=== PATIENT | male | born 1950 | race Caucasian/White ===

== ENCOUNTER 2016-08-13 06:25 | Observation (INO) | payer BC ==
[2016-08-13] MEDS ORDERED: ONDANSETRON HCL/PF 2 MG/ML VIAL IV ONE (06:42)
[2016-08-13] MEDS ORDERED: NORMAL SALINE 1,000 ML IV ONE ×2 (06:42→08:12)
[2016-08-13] MEDS ORDERED: ONDANSETRON HCL/PF 2 MG/ML VIAL ONE ×2 (06:44→07:04)
[2016-08-13] MEDS ORDERED: ONDANSETRON 4 MG TAB.RAPDIS PO ONE (06:56)
[2016-08-13] MEDS ORDERED: ONDANSETRON 4 MG TAB.RAPDIS ONE (07:07)
[2016-08-13] MEDS ORDERED: DIATRIZOATE MEGLU/DIATRIZO SOD 30 ML BTL ONE (07:07)
[2016-08-13] MEDS ORDERED: DIATRIZOATE MEGLU/DIATRIZO SOD 30 ML BTL PO ONE (07:09)
[2016-08-13 07:15] LABS: Hematocrit 46.5 % (42.0-52.0); Hemoglobin 16.3 gm/dL (13.5-18.0); Mean Cell Volume 85.5 fl (78-100); Mean Corpuscular Hgb Conc 35.1 g/dl (32-36); Mean Platelet Volume 10.9 fl (6.0-9.5); Platelet Count 116 K/mm3 (150-450); Red Blood Count 5.44 M/mm3 (4.7-6.0); Red Cell Distribution Width 12.6 % (11.5-14.0); White Blood Count 3.5 K/mm3 (4.0-10.5)
[2016-08-13 07:16] LABS: Total Cells Counted 100
[2016-08-13] MEDS ORDERED: KETOROLAC TROMETHAMINE 30 MG/ML VIAL IV ONE (07:16)
[2016-08-13 07:25] LABS: Atypical (Reactive) Lymph 9 % (0-2); Band 6 % (0-2.0); Basophil 1 % (0-1); Eosinophil 1 % (0-3); Immature Granulocyte 1 (0-1); Lymphocyte 17 % (20-51); Monocyte 4 % (0-9); Neutrophil 61 % (42-75); Neutrophil # 2.1 K/mm3 (1.3-6.0); Platelet Estimate Normal (NORMAL); RBC Morphology Normal (NORMAL)
--- NOTE | 2016-08-13 07:25 | ERNOTE ---
<Jesus Oro - Last Filed: 08/13/16 07:25> Medical Problem HPI - Narrative Date of Service: 08/13/16 - General Chief Complaint: Nausea/Vomiting Time Seen by Provider: 08/13/16 07:18 Source: patient, family Exam Limitations: no limitations - Immun/Allergies/Home Medications Immunizations: IMMUNIZATION HX Immunizations Up to Date Yes History of Influenza Vaccine No Hx Pneumococcal Vaccination No Allergies/Adverse Reactions: Allergies morphine Adverse Reaction (Mild, Verified 08/13/16 07:02) Other Home Medications: HOME MEDICATIONS Aspirin [Aspirin Chewable] 81 mg PO DAILY 07/07/14 [Last Taken Unknown] Atorvastatin Calcium [Lipitor] 20 mg PO DAILY 07/07/14 [Last Taken Unknown] Metoprolol Tartrate [Lopressor] 25 mg PO DAILY 07/07/14 [Last Taken Unknown] Sitagliptin Phosphate [Januvia] 100 mg PO DAILY 07/07/14 [Last Taken Unknown] - History of Present History Narrative: 66 year old that returned from [place] about 9 days ago after a cruise. Seven days ago he began having diarrhea that has been persistent. Since he did not look at it, he does not know if there was blood in it. Eating increases the diarrhea. Juan Ramon believes that he has lost 20 pounds since the onset of his symptoms. There has been a persistent low grade fever since the diarrhea started. Complaints of lower abdominal pain that has been constant x 2 days. His had similar symptoms but her have resolved. Hx of colitis and DM. Timing: constant Severity: moderate Modifying Factors - (Improves): Present: other - nothing Modifying Factors - (Worsens): Present: other - eating Review of Systems - Review of Systems Constitutional: Present: fever EYE: Present: no symptoms reported ENT: Present: no symptoms reported Respiratory: Present: no symptoms reported Cardiology: Present: no symptoms reported Gastrointestinal/Abdominal: Present: no symptoms reported Genitourinary: Present: no symptoms reported Musculoskeletal: Present: no symptoms reported Skin: Present: no symptoms reported Neurological: Present: no symptoms reported Endocrine: Present: no symptoms reported Hematologic/Lymphatic: Present: no symptoms reported Psych: Present: no symptoms reported - Patient's Past Medical History Patient History - Medical: Diabetes Type 2 Patient History - Cardiac/Respiratory: Hypertension, Hyperlipidemia, Myocardial Infarction Patient History - Cancer: No Hx of Cancer Patient History - Surgical Procedures: Other Patient History - Other: None - Social History Living Situations: home Smoking Status: Never smoker Alcohol Use: none Drug Use: none - Immunizations Immunizations Up to Date: Yes Hx Pneumococcal Vaccination: No History of Influenza Vaccine: No Physical Exam - Physical Exam General Appearance: Present: no apparent distress Eye Exam: Normal inspection: bilateral Ears, Nose, Throat: Present: normal ENT inspection Neck: Present: normal inspection Respiratory: Present: no respiratory distress, normal breath sounds Cardiovascular/Chest: Present: regular rate, rhythm, no murmur Gastrointestinal/Abdominal: Present: nondistended, soft, tenderness - mild Back Exam: Present: normal inspection Extremity Exam: Present: normal inspection, non-tender, no edema Neurological Exam: Present: alert, oriented, loss control consultant II-XII nml as tested Skin Exam: Present: normal color ED Progress - Vital Signs Vital Signs: Vital Signs 08/13/16 08/13/16 06:28 07:16 Temperature 35.7 C L Pulse Rate 76 82 Respiratory 13 16 Rate Blood Pressure 152/84 132/89 O2 Sat by Pulse 95 95 Oximetry - Progress/Reassessment Chief Complaint: Nausea/Vomiting - Transfer of Care Physician Sign Out: Jesus Oro Receiving Physician: Blanca Kelley Pending Results: CT/MRI results, Labs Departure - Departure Clinical Impression: Hypokalemia, Dehydration, Colitis Abdominal pain Qualifiers: Abdominal location: generalized Qualified Code(s): R10.84 - Generalized abdominal pain Disposition: [facility] Condition: Stable Referrals: Monica Suarez MD [Primary Care Provider] - <Blanca Kelley - Last Filed: 08/13/16 11:53> Medical Problem HPI - Immun/Allergies/Home Medications Immunizations: IMMUNIZATION HX Immunizations Up to Date Yes History of Influenza Vaccine No Hx Pneumococcal Vaccination No ED Progress - Date and Time Seen: Date and Time: 08/13/16 11:48 Patient transfer care from Dr. Oro to Dr. Kelley - Results and Orders Patient's Lab Results:: I have reviewed the patient's lab results. - Vital Signs Patient's Vital Signs:: I have reviewed the patient's vital signs. Vital Signs: Vital Signs 08/13/16 08/13/16 08/13/16 06:28 07:16 08:25 Temperature 35.7 C L Pulse Rate 76 82 78 Respiratory 13 16 16 Rate Blood Pressure 152/84 132/89 132/82 O2 Sat by Pulse 95 95 96 Oximetry 08/13/16 08/13/16 08:58 09:54 Temperature 36.4 C L Pulse Rate 85 75 Respiratory 16 18 Rate Blood Pressure 120/86 136/66 O2 Sat by Pulse 96 96 Oximetry - CT/Ultrasound CT/Ultrasound Narrative: Ct scan of the abdomen did not show any acute abnormality, bladder wall thickening suggesting possible cystitis. - Progress/Reassessment Progress:: Improved - Transfer of Care Expected Disposition: Admit Additional Notes: The patient will be admitted to Dr. Boswell observation unit.
[2016-08-13 08:04] LABS: Albumin * 3.6 gm/dl (3.4-5.0); Anion Gap 14.7 mmol/L (6.8-13.8); BUN/Creatinine Ratio 20.5 (9.0-21.6); Bilirubin, Total 0.9 mg/dL (0.0-1.1); Ca. Corrected For Albumin 8.3 mg/dL (8.4-10.2); Calcium * 8.3 mg/dL (7.9-10.9); Carbon Dioxide 23.4 mmol/L (24-32.6); Potassium 3.1 mmol/L (3.4-4.6); Total Protein 6.7 gm/dL (6.2-8.2)
[2016-08-13] MEDS ORDERED: KETOROLAC TROMETHAMINE 30 MG/ML VIAL ONE (08:08)
[2016-08-13] MEDS ORDERED: diphenhydrAMINE HCL 50 MG/ML VIAL IV ONE ×2 (08:12)
[2016-08-13] MEDS ORDERED: METOCLOPRAMIDE HCL 5 MG/ML VIAL IV ONE ×2 (08:12)
[2016-08-13] MEDS: POTASSIUM CHLORIDE 20 MEQ TABLET.SA PO ONE ×2 (08:15→08:18)
[2016-08-13] MEDS ORDERED: diphenhydrAMINE HCL 50 MG/ML VIAL ONE (08:16)
[2016-08-13] MEDS ORDERED: POTASSIUM CHLORIDE 20 MEQ TABLET.SA ONE (08:16)
[2016-08-13] MEDS ORDERED: METOCLOPRAMIDE HCL 5 MG/ML VIAL ONE (08:16)
[2016-08-13] MEDS ORDERED: POTASSIUM CHLORIDE 100 ML IV ONE ×2 (10:30→10:32)
[2016-08-13] MEDS ORDERED: ACETAMINOPHEN 325 MG TABLET PO PRN (12:23)
[2016-08-13] MEDS ORDERED: ENOXAPARIN SODIUM 40 MG/0.4 ML SYRG SC SCH (12:30)
--- NOTE | 2016-08-13 12:48 | HP ---
Chief Complaint - Chief Complaint Date of Service: 08/13/16 Time of Service: 12:05 Chief Complaint: Diarrhea, N/V History of Present Illness: The patient is a 66 year old male that presents to the ED with complaints of nausea, vomiting and diarrhea X 1 week. He recently returned home on 08.06.2016 from [place] after going on a cruise. Later during the evening on Aug 06, the patient states is when his symptoms started. He denies any blood in his stool or emesis. He had abdominal pain at first but states that it has improved over the past week. He has had difficulty keeping any food or liquids down over the past week. His had a similar illness but it completely resolved after a couple days for her. The patient admits to feeling very tired and weak. He has lost approximately 20 pounds over the past week. He states that he has never had a colonoscopy but knows he should. The patient also admits to having decreased urination and dysuria over the past week but thought it was because he was dehydrated so didn't really think too much of the burning with urination. He denies any recent antibiotic use. 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 He also follows with Dr. Rosa Bejarano with cardiology for his history of CAD and previous MIs. - Patient's Past Medical History Patient History - Medical: Diabetes Type 2 Patient History - Cardiac/Respiratory: Hypertension, Hyperlipidemia, Myocardial Infarction Patient History - Cancer: No Hx of Cancer Patient History - Surgical Procedures: Other Patient History - Other: None - Social History Living Situations: home Smoking Status: Never smoker Alcohol Use: none Drug Use: none - Immunizations Immunizations Up to Date: Yes Hx Pneumococcal Vaccination: No History of Influenza Vaccine: No Review Of Systems (GEN) - Review of Systems Generalized/Overall Review: Present: Weakness, Chills, Malaise, Fatigue, Weight loss. Absent: Fever EENTM: Present: No Symptoms Reported Respiratory: Present: No Symptoms Reported Cardiac: Present: No Symptoms Reported Abdominal: Present: Nausea, Vomiting, Abdominal Pain, Diarrhea. Absent: Hematemesis, Melena, Bright blood from rectum Genitourinary: Present: Burning, Other - Decreased urination Musculoskeletal: Present: No Symptoms Reported Neurological: Present: No Symptoms Reported Skin: Present: No Symptoms Reported Endocrine: Present: No Symptoms Reported Misc: All systems neg except as marked Immunizations: IMMUNIZATION HX Immunizations Up to Date Yes History of Influenza Vaccine No Hx Pneumococcal Vaccination No Allergies/Adverse Reactions: Allergies Allergy/AdvReac Type Severity Reaction Status Date / Time morphine AdvReac Mild Other Verified 08/13/16 07:02 Home Medications: HOME MEDICATIONS Aspirin [Aspirin Chewable] 81 mg PO DAILY 07/07/14 [Last Taken Unknown] Atorvastatin Calcium [Lipitor] 20 mg PO DAILY 07/07/14 [Last Taken Unknown] Metoprolol Tartrate [Lopressor] 25 mg PO DAILY 07/07/14 [Last Taken Unknown] Sitagliptin Phosphate [Januvia] 100 mg PO DAILY 07/07/14 [Last Taken Unknown] Clopidogrel Bisulfate [Plavix] 75 mg PO DAILY 08/13/16 [Last Taken Unknown] Gluc/José Antonio-MSM#1/C/Danial/Duy/Bor [Glucosamine-Chondroitin Tablet] 1 each PO DAILY 08/13/16 [Last Taken Unknown] [place] Oil/[place]-3 Fatty Acids [Fish Oil] 1 cap PO DAILY 08/13/16 [Last Taken Unknown] Exam - Exam Vital Signs: Vital Signs - Last Taken Temp 36.4 C L 08/13/16 08:58 Pulse 75 08/13/16 09:54 Resp 18 08/13/16 09:54 BP 136/66 08/13/16 09:54 Pulse Ox 96 08/13/16 09:54 Constitutional: Present: Alert, Oriented x3, Cooperative, Well developed, No distress, Other - Sleepy and easily falls asleep during exam ENT Exam: Present: hard of hearing, dry mucous membranes Eye Exam: bilateral eye: normal inspection, PERRL, EOMI Respiratory: Present: lungs clear, normal breath sounds, no respiratory distress , no accessory muscle use Cardiovascular/Chest: Present: regular rate, rhythm, no edema, no JVD Abdomen: Present: soft, nondistended, suprapubic tenderness, other - Hyperactive BS, diffuse tenderness with palpation. Absent: rigidity, rebound tenderness, CVA tenderness Extremity: Present: normal inspection, no pedal edema Skin Exam: Present: normal color, warm/dry Neurologic: Present: no motor/sensory deficits, alert, normal mood/affect, oriented x 3 Appearance: Present: appropriate appearance, appropriate insight, neat, no memory impairment Eye contact: Present: cooperative, normal speech Thoughts: Present: normal thought pattern, no apparent hallucination Diagnostic Studies: Abnormal Lab Results 08/13/16 08/13/16 Range/Units 07:10 07:10 WBC 3.5 L (4.0-10.5) K/mm3 Plt Count 116 L (150-450) K/mm3 MPV 10.9 H (6.0-9.5) fl Band Neuts % (Manual) 6 H (0-2.0) % Lymphocytes % (Manual) 17 L (20-51) % Lymphocytes # (Manual) 0.6 L (1.5-3.5) k/mm3 Atypic/Reactive Lymphs 9 H (0-2) % Potassium 3.1 L (3.4-4.6) mmol/L Carbon Dioxide 23.4 L (24-32.6) mmol/L Anion Gap 14.7 H (6.8-13.8) mmol/L Random Glucose 169 H (70-110) mg/dL Calcium Adj for Albumin 8.3 L (8.4-10.2) mg/dL Laboratory Results WBC 3.5 K/mm3 (4.0-10.5) L 08/13/16 07:10 RBC 5.44 M/mm3 (4.7-6.0) 08/13/16 07:10 Hgb 16.3 gm/dL (13.5-18.0) 08/13/16 07:10 Hct 46.5 % (42.0-52.0) 08/13/16 07:10 MCV 85.5 fl (78-100) 08/13/16 07:10 MCH 30.0 pg (27-31) 08/13/16 07:10 MCHC 35.1 g/dl (32-36) 08/13/16 07:10 RDW 12.6 % (11.5-14.0) 08/13/16 07:10 Plt Count 116 K/mm3 (150-450) L 08/13/16 07:10 MPV 10.9 fl (6.0-9.5) H 08/13/16 07:10 Neutrophils % (Manual) 61 % (42-75) 08/13/16 07:10 Band Neuts % (Manual) 6 % (0-2.0) H 08/13/16 07:10 Lymphocytes % (Manual) 17 % (20-51) L 08/13/16 07:10 Monocytes % (Manual) 4 % (0-9) 08/13/16 07:10 Eosinophils % (Manual) 1 % (0-3) 08/13/16 07:10 Basophils % (Manual) 1 % (0-1) 08/13/16 07:10 Immature Granulocytes 1 (0-1) 08/13/16 07:10 Neutrophils # (Manual) 2.1 K/mm3 (1.3-6.0) 08/13/16 07:10 Lymphocytes # (Manual) 0.6 k/mm3 (1.5-3.5) L 08/13/16 07:10 Monocytes # (Manual) 0.1 k/mm3 (0.0-1.0) 08/13/16 07:10 Eosinophils # (Manual) 0.0 k/mm3 (0.0-0.7) 08/13/16 07:10 Basophils # (Manual) 0.0 k/mm3 (0.0-0.1) 08/13/16 07:10 Atypic/Reactive Lymphs 9 % (0-2) H 08/13/16 07:10 Platelet Estimate Normal (NORMAL) 08/13/16 07:10 RBC Morphology Normal (NORMAL) 08/13/16 07:10 Sodium 140 mmol/L (132-142) 08/13/16 07:10 Plasma Sodium 141 mmol/L (130-142) 08/13/16 07:10 Potassium 3.1 mmol/L (3.4-4.6) L 08/13/16 07:10 Chloride 105 mmol/L (97-106) 08/13/16 07:10 Carbon Dioxide 23.4 mmol/L (24-32.6) L 08/13/16 07:10 Anion Gap 14.7 mmol/L (6.8-13.8) H 08/13/16 07:10 BUN 17 mg/dL (6-23) 08/13/16 07:10 Creatinine 0.83 mg/dL (0.4-1.4) 08/13/16 07:10 Est GFR (Non-Af Amer) 99 mL/min (60-130) D 08/13/16 07:10 BUN/Creatinine Ratio 20.5 (9.0-21.6) 08/13/16 07:10 Random Glucose 169 mg/dL (70-110) H 08/13/16 07:10 Calcium 8.3 mg/dL (7.9-10.9) 08/13/16 07:10 Calcium Adj for Albumin 8.3 mg/dL (8.4-10.2) L 08/13/16 07:10 Total Bilirubin 0.9 mg/dL (0.0-1.1) 08/13/16 07:10 AST 30 U/L (0-48) 08/13/16 07:10 ALT 45 U/L (19-67) 08/13/16 07:10 Alkaline Phosphatase 85 U/L (50-170) 08/13/16 07:10 Total Protein 6.7 gm/dL (6.2-8.2) 08/13/16 07:10 Albumin 3.6 gm/dl (3.4-5.0) 08/13/16 07:10 Stl C.difficile Tox A&B Negative (Negative) 08/13/16 09:47 Influenza Type A Ag Negative (NEGATIVE) 08/13/16 06:52 Influenza Type B Ag Negative (NEGATIVE) 08/13/16 06:52 Assessment/Plan - Narrative Narrative: IMPRESSION AND PLAN: Nausea, Vomiting, Diarrhea -Admit to Med-Surg, Observation status -Most likely secondary to a viral gastroenteritis -CT scan reviewed and no signs of bowel wall thickening or stranding to suggest colitis -C.Diff negative. Stool culture pending. -IVF hydration with NS + KCl @ 125cc/hr -Clear liquid diet and advance to consistent carb diet as tolerated -I discussed with the patient and his that I would recommend a colonoscopy in the near future after this acute illness has resolved Dysuria -CT scan shows bladder wall inflammation -UA with culture if indicated ordered Leukopenia, Thrombocytopenia -Likely reactive and related to suspected acute viral gastroenteritis -Continue to monitor after discharge. If remains low despite resolution of acute illness, consider further evaluation with referral to hematology. CHRONIC MEDICAL CONDITIONS: Type 2 DM: Hold home medication Januvia. Check BG AC, HS and PRN. Lispro correction insulin ordered AC, HS. CAD with history of KS: Continue ASA and atorvastatin. Med rec shows patient is on metoprolol tartrate daily which needs to be confirmed. Ideally patient should either be on tartrate BID or succinate daily. GI PPX: Start protonix 40mg PO daily. VTE PPX: Lovenox. Code Status: Full Code Disposition: Continue IVF hydration and advance diet as tolerated. Plan to discharge home tomorrow. - Assessment/Plan (1) Gastroenteritis Problem: Suspected (2) Cystitis Problem: Suspected (3) Dysuria Problem: Acute (4) Dehydration Problem: Acute (5) Hypokalemia Problem: Acute
[2016-08-13] MEDS: POTASSIUM CHLORIDE 20 MEQ in NORMAL SALINE 1,000 ML IV SCH ×2 (13:23→21:23)
[2016-08-13 15:43] LABS: Urine Bilirubin Negative (NEGATIVE); Urine Blood Negative /ul (NEGATIVE); Urine Ketone 50 mg/dL (NEGATIVE); Urine Nitrite Negative (NEGATIVE); Urine Protein Negative (NEGATIVE); Urine Specific Gravity 1.015 SP.GR. (1.005-1.030); Urine Urobilinogen Normal (NORMAL)
[2016-08-13] MEDS ORDERED: FLU VACC QS2016-17 36MOS UP/PF 60 MCG/0.5 ML DISP.SYRIN IM ONE (16:00)
[2016-08-13 16:06] LABS: Urine Appearance Clear; Urine Color Yellow
[2016-08-13 16:07] LABS: Urine Bacteria None Seen; Urine RBC None Seen /hpf (0-5); Urine WBC None Seen /hpf (0-5)
[2016-08-13] MEDS: INSULIN LISPRO 100 UNITS/ML VIAL SC SCH (16:18)
[2016-08-14] MEDS: POTASSIUM CHLORIDE 20 MEQ in NORMAL SALINE 1,000 ML IV SCH (05:21)
[2016-08-14] MEDS: INSULIN LISPRO 100 UNITS/ML VIAL SC SCH (06:55)
[2016-08-14] MEDS ORDERED: ASPIRIN 81 MG TAB.CHEW PO SCH (09:00)
[2016-08-14] MEDS ORDERED: CLOPIDOGREL BISULFATE 75 MG TABLET PO SCH (09:00)
[2016-08-14 09:19] LABS: Anion Gap 11.1 mmol/L (6.8-13.8); BUN/Creatinine Ratio 8.8 (9.0-21.6); Calcium * 8.3 mg/dL (7.9-10.9); Carbon Dioxide 26.4 mmol/L (24-32.6); Estimated Creat Clear 102.4; Potassium 3.5 mmol/L (3.4-4.6)
[2016-08-14 09:35] VITALS: BP 115/64
--- NOTE | 2016-08-14 09:38 | DS ---
(1) Gastroenteritis Problem: Suspected (2) Cystitis Problem: Ruled-out (3) Dysuria Problem: Resolved (4) Dehydration Problem: Resolved (5) Hypokalemia Problem: Resolved Description of Stay: ADMISSION DATE: 08.13.2016 DISCHARGE DATE: 08.14.2016 ADMISSION HPI: The patient is a 66 year old male that presents to the ED with complaints of nausea, vomiting and diarrhea X 1 week. He recently returned home on 08.06.2016 from [place] after going on a cruise. Later during the evening on Aug 06, the patient states is when his symptoms started. He denies any blood in his stool or emesis. He had abdominal pain at first but states that it has improved over the past week. He has had difficulty keeping any food or liquids down over the past week. His had a similar illness but it completely resolved after a couple days for her. The patient admits to feeling very tired and weak. He has lost approximately 20 pounds over the past week. He states that he has never had a colonoscopy but knows he should. The patient also admits to having decreased urination and dysuria over the past week but thought it was because he was dehydrated so didn't really think too much of the burning with urination. He denies any recent antibiotic use. 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 He also follows with Dr. Rosa Bejarano with cardiology for his history of CAD and previous MIs. PROBLEM BASED HOSPITAL COURSE: Nausea, Vomiting, Diarrhea -Most likely secondary to a viral gastroenteritis -CT scan reviewed and no signs of bowel wall thickening or stranding to suggest colitis -C.Diff negative. Stool culture NGTD. -Patient treated with IVFs during admission -Clear liquid diet and advance to consistent carb diet as tolerated -I discussed with the patient and his that I would recommend a colonoscopy in the near future after this acute illness has resolved Leukopenia, Thrombocytopenia -Likely reactive and related to suspected acute viral gastroenteritis -Continue to monitor after discharge. If remains low despite resolution of acute illness, consider further evaluation with referral to hematology. FOLLOW-UP APPOINTMENTS: PCP within 1-2 weeks NEW OR CHANGED MEDICATIONS: None DISCONTINUED MEDICATIONS: None Procedures Performed: none Results and Findings: Laboratory Tests 08/13/16 08/13/16 08/13/16 06:52 07:10 07:10 WBC 3.5 L Plt Count 116 L Sodium 140 Plasma Sodium 141 Potassium 3.1 L Chloride 105 Carbon Dioxide 23.4 L Anion Gap 14.7 H BUN 17 Creatinine 0.83 Total Bilirubin 0.9 AST 30 ALT 45 Alkaline Phosphatase 85 Total Protein 6.7 Albumin 3.6 Stl C.difficile Tox A&B Influenza Type A Ag Negative Influenza Type B Ag Negative 08/13/16 08/14/16 09:47 08:45 WBC Plt Count Sodium 143 H Plasma Sodium 145 H Potassium 3.5 Chloride 109 H Carbon Dioxide 26.4 Anion Gap 11.1 BUN 7 D Creatinine 0.80 Total Bilirubin AST ALT Alkaline Phosphatase Total Protein Albumin Stl C.difficile Tox A&B Negative Influenza Type A Ag Influenza Type B Ag Discharge Disposition: Home self care Disposition: Home self-care Condition: Stable Discharge Activity: Activity as tolerated Discharge Diet: Consistent carbs Referrals: Monica Suarez MD [Primary Care Provider] - Problem Oriented Discharge Instructions to Patient/Family: Hypokalemia, Dehydration, Adult, [id number] Additional Patient Instructions (free text): Follow-up with Dr. Boswell on August 28, 2016 at 1:45 PM Be at the office at 1:00 PM and bring insurance information. Complete Home Medications List: Complete Home Medication List: Aspirin [Aspirin Chewable] 81 mg PO DAILY 07/07/14 Atorvastatin Calcium [Lipitor] 20 mg PO DAILY 07/07/14 Metoprolol Tartrate [Lopressor] 25 mg PO DAILY 07/07/14 Sitagliptin Phosphate [Januvia] 100 mg PO DAILY 07/07/14 Clopidogrel Bisulfate [Plavix] 75 mg PO DAILY 08/13/16 Gluc/José Antonio-MSM#1/C/Danial/Duy/Bor [Glucosamine-Chondroitin Tablet] 1 each PO DAILY 08/13/16 [place] Oil/[place]-3 Fatty Acids [Fish Oil] 1 cap PO DAILY 08/13/16
[2016-08-14] MEDS ORDERED: ROSUVASTATIN CALCIUM 10 MG TABLET PO SCH (21:00)
== END 2016-08-14 11:15 | disposition home or self-care (01) ==
LOC: ER 06:25 → MS 11:57
PROVIDERS: ADMIT Internal Medicine; ATTEND Internal Medicine
DX: E86.0 Dehydration (principal); E87.6 Hypokalemia; R30.0 Dysuria; E11.9 Type 2 diabetes mellitus without complications; Z79.4 Long term (current) use of insulin; Z79.899 Other long term (current) drug therapy; Z23 Encounter for immunization
CPT/HCPCS: 36415; 74177; 80048; 80053; 81001; 85025; 87045; 87046; 87400; 87493; 90686; 96361; 96365; 96372; 96375; 99284; G0008; G0378

== ENCOUNTER 2016-11-05 09:35 | Day surgery (SDC) | payer BC ==
[~2016-11-05 09:35] MED LIST: RINGERS SOLUTION,LACTATED 1,000 ML IV PRN
--- OUTSIDE RECORDS SUMMARY | 2016-11-05 09:37 | XMS REPORT | Continuity of Care Document ---
:1950 Author Organization [facility] ([facility]) [place] [address] Phone [phone] Care Team Providers Name Role Phone Daniela Monica Primary Care Provider [phone] Source Comments This disclosure is being made pursuant to the Care Everywhere program, applicable federal and state laws, and may not contain all informaitonavailable regarding this patient.[facility] ([facility]) Active Allergies and Adverse Reactions Allergen Noted Date Severity Reactions Comments Morphine 02/16/2015 Unknown Current Medications Prescription Sig. Disp. Refills Start Date End Date Status aspirin, buffered 81 mg take 1 tablet 12/13/2011 Active tablet (81MG) by oral route every day sitaGLIPtin (JANUVIA) take 1 tablet by 08/10/2014 Active 100 mg tablet oral route every day nitroglycerin Place 1 Tab (0.4 25 Tab 6 02/22/2015 Active (NITROSTAT) 0.4 mg SL mg total) under tablet the tongue every 5 minutes as needed atorvastatin (LIPITOR) Take 1 tablet (40 90 tablet 3 09/03/2016 Active 40 mg tablet mg total) by mouth daily. metoPROLol succinate 25 Take 1 tablet (25 90 tablet 3 09/04/2016 Active mg XL tablet mg total) by mouth daily. Active Problems Problem Noted Date History of coronary artery stent placement Overview: Formatting of this note may be different from the original. 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 Non ST elevation IN 2. Two vessel CAD 3. Anterior wall IN in 2005 with proximal LAD stent. That stent is widely patent. 4. Proximal occlusion of the posterolateral branch of the RCA. 5. Stent to the PL branch with a 3.0 x16 mm promus KATHY; 100% to 0% 6. Apical hypokinesis; EF 55% ) - 07/07/2014 STRESS TESTS: [facility] (Normal EF, Normal, Full [place] 9:00) - 10/11/2008 [facility] (Normal EF, Normal, Full [place] 9:00) - 06/11/2006 Hyperlipidemia Overview: Formatting of this note may be different from the original. LIPID HISTORY: Results Date Total Cholesterol Triglycerides HDL LDL 12/16/2012 154 220 24.00 86.00 12/13/2011 137 166 27.00 77.00 12/05/2010 153 135 26.00 100.00 11/23/2009 155 160 25.00 98.00 10/11/2008 168 159 29.00 107.00 Myocardial infarction, old Diabetes Most Recent Encounters Date Type Specialty Providers Description 09/04/2016 Refill Cardiac Rehabilitation Rosa Bejarano MD Dx: Myocardial infarction, old (Primary Dx) 09/03/2016 Refill Cardiac Rehabilitation Rosa Bejarano MD Dx: Hyperlipidemia, mixed (Primary Dx) Social History Tobacco Use Types Packs/Day Years Used Date Never Smoker Alcohol Use Drinks/Week oz/Week Comments No Last Filed Vital Signs Vital Sign Reading Time Taken Blood Pressure 118/80 06/26/2016 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 Pulse 78 06/26/2016 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 Temperature - - Respiratory Rate - - Height 1.829 m (6') 06/26/2016 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 Weight 98.884 kg (218 lb) 06/26/2016 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 Body Mass Index 29.56 06/26/2016 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 Oxygen Saturation - - Plan of Care Date Type Specialty Providers Description 06/20/2017 Appointment Heart and Vascular Rosa Bejarano MD Chief Comp: Patient [address] [place] [address] Visit [phone] (Fax) Health Maintenance Due Date Last Done Comments HCV Screening 1950 Hepatitis B Vaccine (1 of 3 - Primary Series) 1950 Tdap Vaccine 1963 DIABETIC: Cholesterol 1970 Diabetic: Hdl 1970 DIABETIC: Hemoglobin A1C 1970 Diabetic: Ldl 1970 DIABETIC: Microalbumin 1970 DIABETIC: Triglycerides 1970 Td Vaccine 1970 Pneumococcal Vaccine (1 of 1 - PPSV23) 1971 Colonoscopy 2002 Prostate Cancer Screening 2002 Zoster Vaccine 2012 DIABETIC: Foot Exam 02/19/2015 DIABETIC: Retinal Eye Exam 02/19/2015 Influenza Vaccine: Seasonal (#1) 02/13/2016 Results from Last 3 Months Not on file
[2016-11-05] MEDS ORDERED: NORMAL SALINE 1,000 ML IV ONE (10:15)
[2016-11-05] MEDS ORDERED: RINGERS SOLUTION,LACTATED 1,000 ML IV PRN (11:08)
[2016-11-05 12:33] VITALS: BP 115/68
--- NOTE | 2016-11-05 16:34 | OR ---
Operative Report - Dictated Report Narrative: OPERATIVE REPORT DATE OF OPERATION: 11/05/2016 PREOPERATIVE DIAGNOSIS: No prior dedicated colon studies POSTOPERATIVE DIAGNOSIS: Normal colonoscopy OPERATION: Colonoscopy SURGEON: Kelvin Mirza MD ANESTHESIA: CARSON Kebede CRNA INDICATIONS FOR PROCEDURE: The patient is a 66-year-old male referred by Dr. Boswell. The patient has had no previous dedicated colon studies. There is no family history of colon cancer. The patient gives his bowels about once a week FINDINGS: Very capacious: Otherwise normal exam to the cecum NARRATIVE OF PROCEDURE: The patient was identified in the holding area, and prior to the administration of anesthetic, a multidisciplinary timeout was observed. With the patient in the left lateral position and after the administration of intravenous sedation, the perineum was inspected. There was no evidence of pilonidal disease or skin breakdown. The external appearance of the anus was normal. Sphincter tone was good. The flexible fiberoptic colonoscope was inserted into the rectum which was insufflated with air. The rectal mucosa and submucosal vascular pattern appeared normal, the prep was seen to be complete. The scope was advanced through the sigmoid colon, up the descending colon, and around the splenic flexure where the triangular haustral architecture of the transverse colon was seen. The scope was advanced across the transverse colon, around the hepatic flexure to the cecum, where the confluence of tenia and the ileocecal valve were identified. The mucosa at this level appeared normal. The scope was then slowly withdrawn in a circular fashion so that all aspects of colonic mucosa were inspected. The colon was very capacious in character and redundant course requiring standard reduction maneuvers to reach the cecum. The haustral architecture appeared well preserved throughout with no evidence of external compression. The mucosa and submucosal vascular pattern appeared normal, specifically there was no gross evidence to suggest colitis or inflammatory bowel disease and no AV malformations were seen. No diverticulosis was demonstrated. No polyps were encountered. The scope was gradually withdrawn to the level of the rectum. As much insufflated air as possible was removed. The scope was withdrawn from the patient and the procedure terminated. The patient tolerated the anesthetic and procedure well without complication and was transferred back to the ambulatory surgery area awake and in stable condition. The patient remained stable throughout a period of postoperative observation. He denied abdominal discomfort, was able to tolerate by mouth intake, and was up without assistance. I shared the operative findings with the patient and he was given copies of the photographs which appear in the medical record. He was discharged home with instructions not to engage in hazardous activity today, but may resume normal activity tomorrow, and advance diet as tolerated. He is to continue those medications as listed in the history and physical exam. RECOMMENDATION: Colon surveillance in 10 years depending upon findings and symptoms Reviewed and electronically signed
== END 2016-11-05 09:36 | disposition home or self-care (01) ==
LOC: AMB 09:35
PROVIDERS: ATTEND Surgery
PROC: 0DJD8ZZ Inspection of Lower Intestinal Tract, Via Natural or Artificial Opening Endoscopic (ICD-10-PCS; principal; 2016-11-05 10:15)
DX: Z12.11 Encounter for screening for malignant neoplasm of colon (principal); E11.9 Type 2 diabetes mellitus without complications; E78.5 Hyperlipidemia, unspecified; I10 Essential (primary) hypertension; Z68.29 Body mass index [BMI] 29.0-29.9, adult